=== PATIENT | female | born 1940 | race Caucasian/White ===

== ENCOUNTER 2017-02-28 10:00 | Outpatient (CLI) | payer MEDICARE, BC ==
[~2017-02-28 10:00] MED LIST: ASPI-605 PO; ATOR40TA GT; CARV25TA2 PO; OLME40TA3 PO
== END 2017-02-28 23:59 | disposition home or self-care (01) ==
LOC: WOU 10:00
PROVIDERS: ATTEND Podiatrist Foot & Ankle Surgery
DX: I87.313 Chronic venous hypertension (idiopathic) with ulcer of bilateral lower extremity (principal); L97.822 Non-pressure chronic ulcer of other part of left lower leg with fat layer exposed; L97.812 Non-pressure chronic ulcer of other part of right lower leg with fat layer exposed; Z87.828 Personal history of other (healed) physical injury and trauma; M79.2 Neuralgia and neuritis, unspecified; M79.662 Pain in left lower leg; M79.661 Pain in right lower leg; E78.5 Hyperlipidemia, unspecified; I10 Essential (primary) hypertension; Z79.899 Other long term (current) drug therapy; Z96.643 Presence of artificial hip joint, bilateral; Z86.73 Personal history of transient ischemic attack (TIA), and cerebral infarction without residual deficits; Z87.891 Personal history of nicotine dependence; Z85.3 Personal history of malignant neoplasm of breast
CPT/HCPCS: 11042; A6402; J3490

== ENCOUNTER 2017-03-07 10:00 | Outpatient (CLI) | payer MEDICARE, BC ==
[~2017-03-07 10:00] MED LIST changes: +OLME40TA12 PO; -OLME40TA3 PO
== END 2017-03-07 23:59 | disposition home or self-care (01) ==
LOC: WOU 10:00
PROVIDERS: ATTEND Podiatrist Foot & Ankle Surgery
DX: I87.313 Chronic venous hypertension (idiopathic) with ulcer of bilateral lower extremity (principal); L97.822 Non-pressure chronic ulcer of other part of left lower leg with fat layer exposed; L97.812 Non-pressure chronic ulcer of other part of right lower leg with fat layer exposed; Z96.643 Presence of artificial hip joint, bilateral; Z86.73 Personal history of transient ischemic attack (TIA), and cerebral infarction without residual deficits; Z85.3 Personal history of malignant neoplasm of breast; Z87.891 Personal history of nicotine dependence; Z87.828 Personal history of other (healed) physical injury and trauma
CPT/HCPCS: 11042; A6402

== ENCOUNTER 2017-03-20 12:00 | Outpatient (CLI) | payer MEDICARE, BC | END 2017-03-20 23:59 | disposition home or self-care (01) | LOC: WOU 12:00 | PROVIDERS: ATTEND Podiatrist Foot & Ankle Surgery | DX: I87.313 Chronic venous hypertension (idiopathic) with ulcer of bilateral lower extremity (principal); L97.822 Non-pressure chronic ulcer of other part of left lower leg with fat layer exposed; L97.812 Non-pressure chronic ulcer of other part of right lower leg with fat layer exposed; M79.2 Neuralgia and neuritis, unspecified; C50.919 Malignant neoplasm of unspecified site of unspecified female breast; Z87.828 Personal history of other (healed) physical injury and trauma; Z87.891 Personal history of nicotine dependence; E78.5 Hyperlipidemia, unspecified; I10 Essential (primary) hypertension; Z96.643 Presence of artificial hip joint, bilateral; Z79.899 Other long term (current) drug therapy | CPT/HCPCS: 11042; A6402 ==

== ENCOUNTER 2017-04-04 10:00 | Outpatient (CLI) | payer MEDICARE, BC | END 2017-04-04 23:59 | disposition home or self-care (01) | LOC: WOU 10:00 | PROVIDERS: ATTEND Podiatrist Foot & Ankle Surgery | DX: Z09 Encounter for follow-up examination after completed treatment for conditions other than malignant neoplasm (principal); M79.2 Neuralgia and neuritis, unspecified; C50.919 Malignant neoplasm of unspecified site of unspecified female breast; Z86.73 Personal history of transient ischemic attack (TIA), and cerebral infarction without residual deficits; Z79.82 Long term (current) use of aspirin; Z87.891 Personal history of nicotine dependence; I10 Essential (primary) hypertension | CPT/HCPCS: G0463 ==

== ENCOUNTER 2017-11-29 13:39 | Outpatient (CLI) | payer MEDICARE, BC | END 2017-11-29 23:59 | disposition home or self-care (01) | LOC: WOU 13:39 | PROVIDERS: ATTEND Podiatrist Foot & Ankle Surgery | DX: S81.812A Laceration without foreign body, left lower leg, initial encounter (principal); X58.XXXA Exposure to other specified factors, initial encounter; Y92.89 Other specified places as the place of occurrence of the external cause; M79.2 Neuralgia and neuritis, unspecified; Z96.643 Presence of artificial hip joint, bilateral; Z85.3 Personal history of malignant neoplasm of breast; I10 Essential (primary) hypertension; Z86.73 Personal history of transient ischemic attack (TIA), and cerebral infarction without residual deficits; Z87.891 Personal history of nicotine dependence; Z79.899 Other long term (current) drug therapy | CPT/HCPCS: 11042; A6402; Z7610 ==

== ENCOUNTER 2017-12-05 09:25 | Outpatient (CLI) | payer MEDICARE, BC | END 2017-12-05 23:59 | disposition home or self-care (01) | LOC: WOU 09:25 | PROVIDERS: ATTEND Podiatrist Foot & Ankle Surgery | DX: S81.812A Laceration without foreign body, left lower leg, initial encounter (principal); X58.XXXA Exposure to other specified factors, initial encounter; Y92.89 Other specified places as the place of occurrence of the external cause; M79.2 Neuralgia and neuritis, unspecified; Z85.3 Personal history of malignant neoplasm of breast; Z96.643 Presence of artificial hip joint, bilateral; Z87.891 Personal history of nicotine dependence; E78.5 Hyperlipidemia, unspecified; Z86.73 Personal history of transient ischemic attack (TIA), and cerebral infarction without residual deficits; Z79.899 Other long term (current) drug therapy | CPT/HCPCS: 11042; A6402; Z7610 ==

== ENCOUNTER 2017-12-12 14:00 | Outpatient (CLI) | payer MEDICARE, BC | END 2017-12-12 23:59 | disposition home or self-care (01) | LOC: WOU 14:00 | PROVIDERS: ATTEND Podiatrist Foot & Ankle Surgery | DX: S81.812A Laceration without foreign body, left lower leg, initial encounter (principal); X58.XXXA Exposure to other specified factors, initial encounter; Y92.89 Other specified places as the place of occurrence of the external cause; M79.2 Neuralgia and neuritis, unspecified; Z86.73 Personal history of transient ischemic attack (TIA), and cerebral infarction without residual deficits; Z87.891 Personal history of nicotine dependence; Z85.3 Personal history of malignant neoplasm of breast; Z82.49 Family history of ischemic heart disease and other diseases of the circulatory system | CPT/HCPCS: 11042; A6402; J3490; Z7610 ==

== ENCOUNTER 2017-12-19 13:50 | Outpatient (CLI) | payer MEDICARE, BC | END 2017-12-19 23:59 | disposition home or self-care (01) | LOC: WOU 13:50 | PROVIDERS: ATTEND Podiatrist Foot & Ankle Surgery | DX: S81.812A Laceration without foreign body, left lower leg, initial encounter (principal); X58.XXXA Exposure to other specified factors, initial encounter; Y92.89 Other specified places as the place of occurrence of the external cause; M79.2 Neuralgia and neuritis, unspecified; Z96.643 Presence of artificial hip joint, bilateral; Z86.73 Personal history of transient ischemic attack (TIA), and cerebral infarction without residual deficits; Z87.891 Personal history of nicotine dependence; Z85.3 Personal history of malignant neoplasm of breast; E78.5 Hyperlipidemia, unspecified; I10 Essential (primary) hypertension | CPT/HCPCS: 15271; A6402; Q4132; Z7610 ==

== ENCOUNTER 2017-12-26 10:05 | Outpatient (CLI) | payer MEDICARE, BC | END 2017-12-26 23:59 | disposition home or self-care (01) | LOC: WOU 10:05 | PROVIDERS: ATTEND Podiatrist Foot & Ankle Surgery | DX: S81.812A Laceration without foreign body, left lower leg, initial encounter (principal); X58.XXXA Exposure to other specified factors, initial encounter; Y92.89 Other specified places as the place of occurrence of the external cause; Y99.8 Other external cause status; M79.2 Neuralgia and neuritis, unspecified; Z87.891 Personal history of nicotine dependence; Z96.643 Presence of artificial hip joint, bilateral; Z85.3 Personal history of malignant neoplasm of breast; Z86.73 Personal history of transient ischemic attack (TIA), and cerebral infarction without residual deficits | CPT/HCPCS: 15271; A6402; Q4133 ==

== ENCOUNTER 2018-01-02 08:40 | Outpatient (CLI) | payer MEDICARE, BC | END 2018-01-02 23:59 | disposition home or self-care (01) | LOC: WOU 08:40 | PROVIDERS: ATTEND Podiatrist Foot & Ankle Surgery | DX: S81.812A Laceration without foreign body, left lower leg, initial encounter (principal); X58.XXXA Exposure to other specified factors, initial encounter; Y92.89 Other specified places as the place of occurrence of the external cause; M79.2 Neuralgia and neuritis, unspecified; Z86.73 Personal history of transient ischemic attack (TIA), and cerebral infarction without residual deficits; Z87.891 Personal history of nicotine dependence; Z85.3 Personal history of malignant neoplasm of breast; Z92.3 Personal history of irradiation; Z96.643 Presence of artificial hip joint, bilateral | CPT/HCPCS: 15271; A6402; Z7610 ==

== ENCOUNTER 2018-02-27 09:50 | Outpatient (CLI) | payer MEDICARE, BC | END 2018-02-27 23:59 | disposition home or self-care (01) | LOC: WOU 09:50 | PROVIDERS: ATTEND Podiatrist Foot & Ankle Surgery | DX: S81.812D Laceration without foreign body, left lower leg, subsequent encounter (principal); W45.8XXD Other foreign body or object entering through skin, subsequent encounter; M79.2 Neuralgia and neuritis, unspecified; Z87.891 Personal history of nicotine dependence; Z86.73 Personal history of transient ischemic attack (TIA), and cerebral infarction without residual deficits; Z85.3 Personal history of malignant neoplasm of breast; Z92.3 Personal history of irradiation; E78.5 Hyperlipidemia, unspecified; I10 Essential (primary) hypertension; Z79.82 Long term (current) use of aspirin; Z79.899 Other long term (current) drug therapy | CPT/HCPCS: A6402; G0463; Z7610 ==

== ENCOUNTER 2018-04-10 09:50 | Outpatient (CLI) | payer MEDICARE, BC | END 2018-04-10 23:59 | disposition home or self-care (01) | LOC: WOU 09:50 | PROVIDERS: ATTEND Podiatrist Foot & Ankle Surgery | DX: S81.811A Laceration without foreign body, right lower leg, initial encounter (principal); W22.8XXA Striking against or struck by other objects, initial encounter; Y92.89 Other specified places as the place of occurrence of the external cause; M79.2 Neuralgia and neuritis, unspecified; E78.5 Hyperlipidemia, unspecified; Z86.73 Personal history of transient ischemic attack (TIA), and cerebral infarction without residual deficits; Z85.3 Personal history of malignant neoplasm of breast; Z87.891 Personal history of nicotine dependence; I10 Essential (primary) hypertension; Z96.643 Presence of artificial hip joint, bilateral; Z79.82 Long term (current) use of aspirin; Z79.899 Other long term (current) drug therapy | CPT/HCPCS: 11042; A6402 ==

== ENCOUNTER 2018-04-17 10:15 | Outpatient (CLI) | payer MEDICARE, BC | END 2018-04-17 23:59 | disposition home or self-care (01) | LOC: WOU 10:15 | PROVIDERS: ATTEND Podiatrist Foot & Ankle Surgery | DX: S81.811A Laceration without foreign body, right lower leg, initial encounter (principal); W22.8XXA Striking against or struck by other objects, initial encounter; Y92.9 Unspecified place or not applicable; M79.2 Neuralgia and neuritis, unspecified; Z96.643 Presence of artificial hip joint, bilateral; Z86.73 Personal history of transient ischemic attack (TIA), and cerebral infarction without residual deficits; Z87.891 Personal history of nicotine dependence; Z85.3 Personal history of malignant neoplasm of breast; I10 Essential (primary) hypertension; E78.5 Hyperlipidemia, unspecified; Z79.82 Long term (current) use of aspirin; Z79.899 Other long term (current) drug therapy | CPT/HCPCS: 11042; A6402; Z7610 ==

== ENCOUNTER 2018-04-24 09:40 | Outpatient (CLI) | payer MEDICARE, BC | END 2018-04-24 23:59 | disposition home or self-care (01) | LOC: WOU 09:40 | PROVIDERS: ATTEND Podiatrist Foot & Ankle Surgery | DX: S81.811A Laceration without foreign body, right lower leg, initial encounter (principal); W22.8XXA Striking against or struck by other objects, initial encounter; Y92.89 Other specified places as the place of occurrence of the external cause; Z85.3 Personal history of malignant neoplasm of breast; Z90.10 Acquired absence of unspecified breast and nipple; Z87.891 Personal history of nicotine dependence; E78.5 Hyperlipidemia, unspecified; I10 Essential (primary) hypertension; M79.2 Neuralgia and neuritis, unspecified | CPT/HCPCS: 11042; A6402 ==

== ENCOUNTER 2018-05-08 10:15 | Outpatient (CLI) | payer MEDICARE, BC | END 2018-05-08 23:59 | disposition home or self-care (01) | LOC: WOU 10:15 | PROVIDERS: ATTEND Podiatrist Foot & Ankle Surgery | DX: S81.811A Laceration without foreign body, right lower leg, initial encounter (principal); W22.8XXA Striking against or struck by other objects, initial encounter; Y92.89 Other specified places as the place of occurrence of the external cause; Z87.891 Personal history of nicotine dependence; I10 Essential (primary) hypertension; E78.5 Hyperlipidemia, unspecified; Z86.73 Personal history of transient ischemic attack (TIA), and cerebral infarction without residual deficits; Z85.3 Personal history of malignant neoplasm of breast; Z96.643 Presence of artificial hip joint, bilateral; M79.2 Neuralgia and neuritis, unspecified | CPT/HCPCS: 11042; A6402 ==

== ENCOUNTER 2018-05-22 10:30 | Outpatient (CLI) | payer MEDICARE, BC | END 2018-05-22 23:59 | disposition home or self-care (01) | LOC: WOU 10:30 | PROVIDERS: ATTEND Podiatrist Foot & Ankle Surgery | DX: S81.811A Laceration without foreign body, right lower leg, initial encounter (principal); W22.8XXA Striking against or struck by other objects, initial encounter; Y92.89 Other specified places as the place of occurrence of the external cause; M79.2 Neuralgia and neuritis, unspecified; Z96.643 Presence of artificial hip joint, bilateral; E78.5 Hyperlipidemia, unspecified; Z86.73 Personal history of transient ischemic attack (TIA), and cerebral infarction without residual deficits; Z85.3 Personal history of malignant neoplasm of breast; Z87.891 Personal history of nicotine dependence; Z88.8 Allergy status to other drugs, medicaments and biological substances | CPT/HCPCS: 11042; A6402 ==

== ENCOUNTER 2018-06-05 10:30 | Outpatient (CLI) | payer MEDICARE, BC | END 2018-06-05 23:59 | disposition home or self-care (01) | LOC: WOU 10:30 | PROVIDERS: ATTEND Podiatrist Foot & Ankle Surgery | DX: S81.811D Laceration without foreign body, right lower leg, subsequent encounter (principal); W22.8XXD Striking against or struck by other objects, subsequent encounter; M79.2 Neuralgia and neuritis, unspecified; D69.2 Other nonthrombocytopenic purpura; Z85.3 Personal history of malignant neoplasm of breast; Z92.3 Personal history of irradiation; E78.5 Hyperlipidemia, unspecified; Z96.643 Presence of artificial hip joint, bilateral; Z79.82 Long term (current) use of aspirin; Z79.899 Other long term (current) drug therapy | CPT/HCPCS: G0463 ==

== ENCOUNTER 2018-10-02 09:45 | Outpatient (CLI) | payer MEDICARE, BC | END 2018-10-02 23:59 | disposition home or self-care (01) | LOC: WOU 09:45 | PROVIDERS: ATTEND Podiatrist Foot & Ankle Surgery | DX: S81.812A Laceration without foreign body, left lower leg, initial encounter (principal); W45.8XXA Other foreign body or object entering through skin, initial encounter; Y93.K1 Activity, walking an animal; Y92.89 Other specified places as the place of occurrence of the external cause; D69.2 Other nonthrombocytopenic purpura; M79.2 Neuralgia and neuritis, unspecified; Z87.891 Personal history of nicotine dependence; Z85.3 Personal history of malignant neoplasm of breast; Z92.3 Personal history of irradiation; Z96.643 Presence of artificial hip joint, bilateral; Z79.82 Long term (current) use of aspirin; Z79.899 Other long term (current) drug therapy | CPT/HCPCS: A6402; G0463 ==

== ENCOUNTER 2018-10-09 09:40 | Outpatient (CLI) | payer MEDICARE, BC | END 2018-10-09 23:59 | disposition home or self-care (01) | LOC: WOU 09:40 | PROVIDERS: ATTEND Podiatrist Foot & Ankle Surgery | DX: S81.812A Laceration without foreign body, left lower leg, initial encounter (principal); X58.XXXA Exposure to other specified factors, initial encounter; Y92.89 Other specified places as the place of occurrence of the external cause; M79.2 Neuralgia and neuritis, unspecified; D69.2 Other nonthrombocytopenic purpura; Z96.643 Presence of artificial hip joint, bilateral; Z85.3 Personal history of malignant neoplasm of breast; Z86.73 Personal history of transient ischemic attack (TIA), and cerebral infarction without residual deficits; Z87.891 Personal history of nicotine dependence; I10 Essential (primary) hypertension; E78.5 Hyperlipidemia, unspecified; Z92.3 Personal history of irradiation; Z79.82 Long term (current) use of aspirin; Z79.899 Other long term (current) drug therapy | CPT/HCPCS: 11042 ==

== ENCOUNTER 2018-10-16 10:00 | Outpatient (CLI) | payer MEDICARE, BC | END 2018-10-16 23:59 | disposition home or self-care (01) | LOC: WOU 10:00 | PROVIDERS: ATTEND Podiatrist Foot & Ankle Surgery | DX: S71.112A Laceration without foreign body, left thigh, initial encounter (principal); W45.8XXA Other foreign body or object entering through skin, initial encounter; Y93.K1 Activity, walking an animal; Y92.89 Other specified places as the place of occurrence of the external cause; M79.2 Neuralgia and neuritis, unspecified; D69.2 Other nonthrombocytopenic purpura; Z96.643 Presence of artificial hip joint, bilateral; E78.5 Hyperlipidemia, unspecified; Z86.73 Personal history of transient ischemic attack (TIA), and cerebral infarction without residual deficits; Z85.3 Personal history of malignant neoplasm of breast; Z87.891 Personal history of nicotine dependence; Z79.899 Other long term (current) drug therapy; Z79.82 Long term (current) use of aspirin | CPT/HCPCS: 11042 ==

== ENCOUNTER 2018-10-30 09:50 | Outpatient (CLI) | payer MEDICARE, BC | END 2018-10-30 23:59 | disposition home or self-care (01) | LOC: WOU 09:50 | PROVIDERS: ATTEND Podiatrist Foot & Ankle Surgery | DX: S81.812D Laceration without foreign body, left lower leg, subsequent encounter (principal); W45.8XXD Other foreign body or object entering through skin, subsequent encounter; M79.2 Neuralgia and neuritis, unspecified; D69.2 Other nonthrombocytopenic purpura; Z87.891 Personal history of nicotine dependence; Z96.643 Presence of artificial hip joint, bilateral; Z86.73 Personal history of transient ischemic attack (TIA), and cerebral infarction without residual deficits; Z85.3 Personal history of malignant neoplasm of breast; Z79.82 Long term (current) use of aspirin; Z79.899 Other long term (current) drug therapy | CPT/HCPCS: G0463 ==

== ENCOUNTER 2019-01-01 12:30 | Outpatient (CLI) | payer MEDICARE, BC | END 2019-01-01 23:59 | disposition home or self-care (01) | LOC: WOU 12:30 | PROVIDERS: ATTEND Surgery | DX: S51.812A Laceration without foreign body of left forearm, initial encounter (principal); W45.8XXA Other foreign body or object entering through skin, initial encounter; Y92.89 Other specified places as the place of occurrence of the external cause; Z87.891 Personal history of nicotine dependence; D69.2 Other nonthrombocytopenic purpura; M79.2 Neuralgia and neuritis, unspecified; Z96.643 Presence of artificial hip joint, bilateral; Z86.73 Personal history of transient ischemic attack (TIA), and cerebral infarction without residual deficits; Z85.3 Personal history of malignant neoplasm of breast; E78.5 Hyperlipidemia, unspecified; I10 Essential (primary) hypertension; Z92.3 Personal history of irradiation | CPT/HCPCS: G0463 ==

== ENCOUNTER 2019-01-08 12:30 | Outpatient (CLI) | payer MEDICARE, BC | END 2019-01-08 23:59 | disposition home or self-care (01) | LOC: WOU 12:30 | PROVIDERS: ATTEND Surgery | DX: S51.812D Laceration without foreign body of left forearm, subsequent encounter (principal); W45.8XXD Other foreign body or object entering through skin, subsequent encounter; W22.8XXD Striking against or struck by other objects, subsequent encounter; D69.2 Other nonthrombocytopenic purpura; M79.2 Neuralgia and neuritis, unspecified; Z86.73 Personal history of transient ischemic attack (TIA), and cerebral infarction without residual deficits; Z85.3 Personal history of malignant neoplasm of breast; Z92.3 Personal history of irradiation; I10 Essential (primary) hypertension; E78.5 Hyperlipidemia, unspecified; Z87.891 Personal history of nicotine dependence; Z96.643 Presence of artificial hip joint, bilateral | CPT/HCPCS: G0463 ==

== ENCOUNTER 2019-01-15 12:30 | Outpatient (CLI) | payer MEDICARE, BC | END 2019-01-15 23:59 | disposition home or self-care (01) | LOC: WOU 12:30 | PROVIDERS: ATTEND Surgery | DX: S51.812D Laceration without foreign body of left forearm, subsequent encounter (principal); W45.8XXD Other foreign body or object entering through skin, subsequent encounter; Z86.73 Personal history of transient ischemic attack (TIA), and cerebral infarction without residual deficits; Z87.891 Personal history of nicotine dependence; Z85.3 Personal history of malignant neoplasm of breast; Z92.3 Personal history of irradiation; M79.2 Neuralgia and neuritis, unspecified; D69.2 Other nonthrombocytopenic purpura | CPT/HCPCS: G0463 ==

== ENCOUNTER 2019-01-22 12:20 | Outpatient (CLI) | payer MEDICARE, BC | END 2019-01-22 23:59 | disposition home or self-care (01) | LOC: WOU 12:20 | PROVIDERS: ATTEND Surgery | DX: S51.812D Laceration without foreign body of left forearm, subsequent encounter (principal); W45.8XXD Other foreign body or object entering through skin, subsequent encounter; Z86.73 Personal history of transient ischemic attack (TIA), and cerebral infarction without residual deficits; Z85.3 Personal history of malignant neoplasm of breast; I10 Essential (primary) hypertension; E78.5 Hyperlipidemia, unspecified; Z92.3 Personal history of irradiation; D69.2 Other nonthrombocytopenic purpura; M79.2 Neuralgia and neuritis, unspecified | CPT/HCPCS: G0463 ==

== ENCOUNTER 2019-01-29 11:35 | Outpatient (CLI) | payer MEDICARE, BC | END 2019-01-29 23:59 | disposition home or self-care (01) | LOC: WOU 11:35 | PROVIDERS: ATTEND Surgery | DX: T81.30XA Disruption of wound, unspecified, initial encounter (principal); M79.2 Neuralgia and neuritis, unspecified; D69.2 Other nonthrombocytopenic purpura; Z86.73 Personal history of transient ischemic attack (TIA), and cerebral infarction without residual deficits; Z85.3 Personal history of malignant neoplasm of breast; E78.5 Hyperlipidemia, unspecified; I10 Essential (primary) hypertension; Z87.891 Personal history of nicotine dependence; Z96.643 Presence of artificial hip joint, bilateral; Z92.3 Personal history of irradiation; Z79.82 Long term (current) use of aspirin | CPT/HCPCS: G0463 ==

== ENCOUNTER 2019-02-26 12:15 | Outpatient (CLI) | payer MEDICARE, BC | END 2019-02-26 23:59 | disposition home or self-care (01) | LOC: WOU 12:15 | PROVIDERS: ATTEND Surgery | DX: S51.812D Laceration without foreign body of left forearm, subsequent encounter (principal); W45.8XXD Other foreign body or object entering through skin, subsequent encounter; M79.2 Neuralgia and neuritis, unspecified; I10 Essential (primary) hypertension; Z87.891 Personal history of nicotine dependence; D69.2 Other nonthrombocytopenic purpura; E78.5 Hyperlipidemia, unspecified; Z96.643 Presence of artificial hip joint, bilateral | CPT/HCPCS: G0463 ==

== ENCOUNTER 2019-03-12 12:25 | Outpatient (CLI) | payer MEDICARE, BC | END 2019-03-12 23:59 | disposition home or self-care (01) | LOC: WOU 12:25 | PROVIDERS: ATTEND Surgery | DX: S51.812D Laceration without foreign body of left forearm, subsequent encounter (principal); W45.8XXD Other foreign body or object entering through skin, subsequent encounter; Z87.891 Personal history of nicotine dependence; Z86.73 Personal history of transient ischemic attack (TIA), and cerebral infarction without residual deficits; Z85.3 Personal history of malignant neoplasm of breast; Z92.3 Personal history of irradiation; D69.2 Other nonthrombocytopenic purpura; M79.2 Neuralgia and neuritis, unspecified; E78.5 Hyperlipidemia, unspecified; I10 Essential (primary) hypertension; Z96.643 Presence of artificial hip joint, bilateral; Z79.82 Long term (current) use of aspirin; Z79.899 Other long term (current) drug therapy | CPT/HCPCS: G0463 ==

== ENCOUNTER 2019-03-26 12:20 | Outpatient (CLI) | payer MEDICARE, BC | END 2019-03-26 23:59 | disposition home or self-care (01) | LOC: WOU 12:20 | PROVIDERS: ATTEND Surgery | DX: S81.811A Laceration without foreign body, right lower leg, initial encounter (principal); W45.8XXA Other foreign body or object entering through skin, initial encounter; Y93.89 Activity, other specified; Y92.89 Other specified places as the place of occurrence of the external cause; S51.812D Laceration without foreign body of left forearm, subsequent encounter; X58.XXXD Exposure to other specified factors, subsequent encounter; M79.2 Neuralgia and neuritis, unspecified; D69.2 Other nonthrombocytopenic purpura; Z96.643 Presence of artificial hip joint, bilateral; Z86.73 Personal history of transient ischemic attack (TIA), and cerebral infarction without residual deficits; Z85.3 Personal history of malignant neoplasm of breast; Z92.3 Personal history of irradiation; Z87.891 Personal history of nicotine dependence; E78.5 Hyperlipidemia, unspecified; Z79.899 Other long term (current) drug therapy; Z79.82 Long term (current) use of aspirin | CPT/HCPCS: G0463 ==

== ENCOUNTER 2019-04-02 12:30 | Outpatient (CLI) | payer MEDICARE, BC | END 2019-04-02 23:59 | disposition home or self-care (01) | LOC: WOU 12:30 | PROVIDERS: ATTEND Surgery | DX: E85.82 Wild-type transthyretin-related (ATTR) amyloidosis (principal); S81.811D Laceration without foreign body, right lower leg, subsequent encounter; S51.812D Laceration without foreign body of left forearm, subsequent encounter; X58.XXXD Exposure to other specified factors, subsequent encounter; M79.2 Neuralgia and neuritis, unspecified; D69.2 Other nonthrombocytopenic purpura; Z96.643 Presence of artificial hip joint, bilateral; Z85.3 Personal history of malignant neoplasm of breast; Z92.3 Personal history of irradiation; Z86.73 Personal history of transient ischemic attack (TIA), and cerebral infarction without residual deficits; Z87.891 Personal history of nicotine dependence; Z79.82 Long term (current) use of aspirin; Z79.899 Other long term (current) drug therapy | CPT/HCPCS: G0463 ==

== ENCOUNTER 2019-04-09 12:15 | Outpatient (CLI) | payer MEDICARE, BC | END 2019-04-09 23:59 | disposition home or self-care (01) | LOC: WOU 12:15 | PROVIDERS: ATTEND Surgery | DX: S81.811D Laceration without foreign body, right lower leg, subsequent encounter (principal); S51.812D Laceration without foreign body of left forearm, subsequent encounter; W45.8XXD Other foreign body or object entering through skin, subsequent encounter; Z87.891 Personal history of nicotine dependence; I10 Essential (primary) hypertension; E78.5 Hyperlipidemia, unspecified; Z96.643 Presence of artificial hip joint, bilateral; Z86.73 Personal history of transient ischemic attack (TIA), and cerebral infarction without residual deficits; Z85.3 Personal history of malignant neoplasm of breast; Z92.3 Personal history of irradiation | CPT/HCPCS: G0463 ==

== ENCOUNTER 2019-04-23 12:20 | Outpatient (CLI) | payer MEDICARE, BC | END 2019-04-23 23:59 | disposition home or self-care (01) | LOC: WOU 12:20 | PROVIDERS: ATTEND Surgery | DX: S81.811D Laceration without foreign body, right lower leg, subsequent encounter (principal); W45.8XXD Other foreign body or object entering through skin, subsequent encounter; Z86.73 Personal history of transient ischemic attack (TIA), and cerebral infarction without residual deficits; Z85.3 Personal history of malignant neoplasm of breast; Z92.3 Personal history of irradiation; E78.5 Hyperlipidemia, unspecified; I10 Essential (primary) hypertension; M79.2 Neuralgia and neuritis, unspecified; D69.2 Other nonthrombocytopenic purpura; Z79.82 Long term (current) use of aspirin; Z79.899 Other long term (current) drug therapy | CPT/HCPCS: G0463 ==

== ENCOUNTER 2019-04-30 12:15 | Outpatient (CLI) | payer MEDICARE, BC | END 2019-04-30 23:59 | disposition home or self-care (01) | LOC: WOU 12:15 | PROVIDERS: ATTEND Surgery | DX: S51.012A Laceration without foreign body of left elbow, initial encounter (principal); W19.XXXA Unspecified fall, initial encounter; Z91.81 History of falling; Y92.89 Other specified places as the place of occurrence of the external cause; S81.811D Laceration without foreign body, right lower leg, subsequent encounter; W45.8XXD Other foreign body or object entering through skin, subsequent encounter; Z86.73 Personal history of transient ischemic attack (TIA), and cerebral infarction without residual deficits; Z87.891 Personal history of nicotine dependence; Z85.3 Personal history of malignant neoplasm of breast; Z92.3 Personal history of irradiation; E78.5 Hyperlipidemia, unspecified; I10 Essential (primary) hypertension | CPT/HCPCS: G0463 ==

== ENCOUNTER 2019-05-07 12:05 | Outpatient (CLI) | payer MEDICARE, BC | END 2019-05-07 23:59 | disposition home or self-care (01) | LOC: WOU 12:05 | PROVIDERS: ATTEND Surgery | DX: S51.012D Laceration without foreign body of left elbow, subsequent encounter (principal); S81.811D Laceration without foreign body, right lower leg, subsequent encounter; W19.XXXD Unspecified fall, subsequent encounter; Z85.3 Personal history of malignant neoplasm of breast; Z86.73 Personal history of transient ischemic attack (TIA), and cerebral infarction without residual deficits; Z92.3 Personal history of irradiation; M79.2 Neuralgia and neuritis, unspecified; D69.2 Other nonthrombocytopenic purpura; Z96.643 Presence of artificial hip joint, bilateral; Z87.891 Personal history of nicotine dependence; I10 Essential (primary) hypertension | CPT/HCPCS: G0463 ==

== ENCOUNTER 2019-05-21 12:10 | Outpatient (CLI) | payer MEDICARE, BC | END 2019-05-21 23:59 | disposition home or self-care (01) | LOC: WOU 12:10 | PROVIDERS: ATTEND Surgery | DX: S81.811D Laceration without foreign body, right lower leg, subsequent encounter (principal); S51.012D Laceration without foreign body of left elbow, subsequent encounter; X58.XXXD Exposure to other specified factors, subsequent encounter; D69.2 Other nonthrombocytopenic purpura; M79.2 Neuralgia and neuritis, unspecified; I10 Essential (primary) hypertension; E78.5 Hyperlipidemia, unspecified; Z85.3 Personal history of malignant neoplasm of breast; Z86.73 Personal history of transient ischemic attack (TIA), and cerebral infarction without residual deficits; Z92.3 Personal history of irradiation; Z87.891 Personal history of nicotine dependence; Z79.82 Long term (current) use of aspirin; Z79.899 Other long term (current) drug therapy | CPT/HCPCS: G0463 ==

== ENCOUNTER 2019-11-12 13:15 | Outpatient (CLI) | payer MEDICARE, BC | END 2019-11-12 23:59 | disposition home or self-care (01) | LOC: WOU 13:15 | PROVIDERS: ATTEND Surgery | DX: S51.812D Laceration without foreign body of left forearm, subsequent encounter (principal); X58.XXXD Exposure to other specified factors, subsequent encounter; M79.2 Neuralgia and neuritis, unspecified; D69.2 Other nonthrombocytopenic purpura; Z79.82 Long term (current) use of aspirin; I10 Essential (primary) hypertension | CPT/HCPCS: G0463 ==

== ENCOUNTER 2019-11-26 12:35 | Outpatient (CLI) | payer MEDICARE, BC | END 2019-11-26 23:59 | disposition home or self-care (01) | LOC: WOU 12:35 | PROVIDERS: ATTEND Surgery | DX: S51.812D Laceration without foreign body of left forearm, subsequent encounter (principal); W19.XXXD Unspecified fall, subsequent encounter; M79.2 Neuralgia and neuritis, unspecified; D69.2 Other nonthrombocytopenic purpura; I10 Essential (primary) hypertension; E78.5 Hyperlipidemia, unspecified; Z87.891 Personal history of nicotine dependence | CPT/HCPCS: G0463 ==

== ENCOUNTER 2020-04-14 12:40 | Outpatient (CLI) | payer MEDICARE, BC | END 2020-04-14 23:59 | disposition home or self-care (01) | LOC: WOU 12:40 | PROVIDERS: ATTEND Podiatrist Foot & Ankle Surgery | DX: L60.0 Ingrowing nail (principal); L03.031 Cellulitis of right toe; R26.2 Difficulty in walking, not elsewhere classified; M79.671 Pain in right foot; Z79.82 Long term (current) use of aspirin | CPT/HCPCS: G0463 ==

== ENCOUNTER 2021-01-10 08:20 | Outpatient (CLI) | payer MEDICARE, BC | END 2021-01-10 23:59 | disposition home or self-care (01) | LOC: WOU 08:20 | PROVIDERS: ATTEND Surgery | DX: S81.012A Laceration without foreign body, left knee, initial encounter (principal); W19.XXXA Unspecified fall, initial encounter; Y92.89 Other specified places as the place of occurrence of the external cause | CPT/HCPCS: G0463 ==

== ENCOUNTER 2021-01-31 08:15 | Outpatient (CLI) | payer MEDICARE, BC | END 2021-01-31 23:59 | disposition home or self-care (01) | LOC: WOU 08:15 | PROVIDERS: ATTEND Surgery | DX: S81.012A Laceration without foreign body, left knee, initial encounter (principal); W19.XXXA Unspecified fall, initial encounter; Y92.89 Other specified places as the place of occurrence of the external cause | CPT/HCPCS: 11042; 11045 ==

== ENCOUNTER 2021-02-07 08:10 | Outpatient (CLI) | payer MEDICARE, BC | END 2021-02-07 23:59 | disposition home or self-care (01) | LOC: WOU 08:10 | PROVIDERS: ATTEND Surgery | DX: S81.012A Laceration without foreign body, left knee, initial encounter (principal); W19.XXXA Unspecified fall, initial encounter; Y92.89 Other specified places as the place of occurrence of the external cause; I10 Essential (primary) hypertension; E78.5 Hyperlipidemia, unspecified; Z87.891 Personal history of nicotine dependence | CPT/HCPCS: 11042 ==

== ENCOUNTER 2021-02-21 08:15 | Outpatient (CLI) | payer MEDICARE, BC | END 2021-02-21 23:59 | disposition home or self-care (01) | LOC: WOU 08:15 | PROVIDERS: ATTEND Surgery | DX: S81.012A Laceration without foreign body, left knee, initial encounter (principal); W19.XXXA Unspecified fall, initial encounter; Y92.89 Other specified places as the place of occurrence of the external cause; E78.5 Hyperlipidemia, unspecified; I10 Essential (primary) hypertension; Z87.891 Personal history of nicotine dependence | CPT/HCPCS: 11042 ==

== ENCOUNTER 2021-03-07 08:15 | Outpatient (CLI) | payer MEDICARE, BC | END 2021-03-07 23:59 | disposition home or self-care (01) | LOC: WOU 08:15 | PROVIDERS: ATTEND Surgery | DX: S81.012A Laceration without foreign body, left knee, initial encounter (principal); W19.XXXA Unspecified fall, initial encounter; Y92.89 Other specified places as the place of occurrence of the external cause | CPT/HCPCS: 11042 ==

== ENCOUNTER 2021-03-21 08:05 | Outpatient (CLI) | payer MEDICARE, BC | END 2021-03-21 23:59 | disposition home or self-care (01) | LOC: WOU 08:05 | PROVIDERS: ATTEND Surgery | DX: S81.012A Laceration without foreign body, left knee, initial encounter (principal); W19.XXXA Unspecified fall, initial encounter; Y92.89 Other specified places as the place of occurrence of the external cause; I10 Essential (primary) hypertension | CPT/HCPCS: 11042 ==

== ENCOUNTER 2021-04-04 08:00 | Outpatient (CLI) | payer MEDICARE, BC | END 2021-04-04 23:59 | disposition home or self-care (01) | LOC: WOU 08:00 | PROVIDERS: ATTEND Surgery | DX: S81.012A Laceration without foreign body, left knee, initial encounter (principal); W19.XXXA Unspecified fall, initial encounter; Y92.89 Other specified places as the place of occurrence of the external cause | CPT/HCPCS: 11042 ==

== ENCOUNTER 2021-04-18 08:20 | Outpatient (CLI) | payer MEDICARE, BC ==
[2021-04-18] MEDS ORDERED: LIDOCAINE SOLN 4% 50 ML BOTTLE ONE (08:42)
== END 2021-04-18 23:59 | disposition home or self-care (01) ==
LOC: WOU 08:20
PROVIDERS: ATTEND Surgery
DX: S81.012A Laceration without foreign body, left knee, initial encounter (principal); W19.XXXA Unspecified fall, initial encounter; Y92.89 Other specified places as the place of occurrence of the external cause; I10 Essential (primary) hypertension; Z87.891 Personal history of nicotine dependence
CPT/HCPCS: 11042

== ENCOUNTER 2021-05-02 08:15 | Outpatient (CLI) | payer MEDICARE, BC | END 2021-05-02 23:59 | disposition home or self-care (01) | LOC: WOU 08:15 | PROVIDERS: ATTEND Surgery | DX: S81.012D Laceration without foreign body, left knee, subsequent encounter (principal); W19.XXXD Unspecified fall, subsequent encounter | CPT/HCPCS: G0463 ==

== ENCOUNTER 2021-06-13 08:15 | Outpatient (CLI) | payer MEDICARE, BC | END 2021-06-13 23:59 | disposition home or self-care (01) | LOC: WOU 08:15 | PROVIDERS: ATTEND Surgery | DX: S81.012D Laceration without foreign body, left knee, subsequent encounter (principal); W19.XXXD Unspecified fall, subsequent encounter | CPT/HCPCS: G0463 ==

== ENCOUNTER 2021-08-31 13:49 | Outpatient (CLI) | payer MEDICARE, BC ==
[2021-08-31] MEDS ORDERED: LIDOCAINE SOLN 4% 50 ML BOTTLE ONE (13:54)
== END 2021-08-31 23:59 | disposition home or self-care (01) ==
LOC: WOU 13:49
PROVIDERS: ATTEND Surgery
DX: S81.812A Laceration without foreign body, left lower leg, initial encounter (principal); W45.8XXA Other foreign body or object entering through skin, initial encounter; Y92.89 Other specified places as the place of occurrence of the external cause; L03.116 Cellulitis of left lower limb; I10 Essential (primary) hypertension; E78.5 Hyperlipidemia, unspecified; Z85.3 Personal history of malignant neoplasm of breast; Z87.891 Personal history of nicotine dependence
CPT/HCPCS: 11042

== ENCOUNTER 2021-09-04 13:00 | Outpatient (CLI) | payer MEDICARE, BC | END 2021-09-04 23:59 | disposition home or self-care (01) | LOC: WOU 13:00 | PROVIDERS: ATTEND Surgery | DX: S81.812A Laceration without foreign body, left lower leg, initial encounter (principal); X58.XXXA Exposure to other specified factors, initial encounter; Y92.89 Other specified places as the place of occurrence of the external cause; I10 Essential (primary) hypertension; E78.5 Hyperlipidemia, unspecified; Z85.3 Personal history of malignant neoplasm of breast; Z86.73 Personal history of transient ischemic attack (TIA), and cerebral infarction without residual deficits | CPT/HCPCS: 11042 ==

== ENCOUNTER 2021-09-11 13:27 | Outpatient (CLI) | payer MEDICARE, BC | END 2021-09-11 23:59 | disposition home or self-care (01) | LOC: WOU 13:27 | PROVIDERS: ATTEND Surgery | DX: S81.812D Laceration without foreign body, left lower leg, subsequent encounter (principal); X58.XXXD Exposure to other specified factors, subsequent encounter; I10 Essential (primary) hypertension; E78.5 Hyperlipidemia, unspecified; F41.1 Generalized anxiety disorder; Z85.3 Personal history of malignant neoplasm of breast | CPT/HCPCS: G0463 ==

== ENCOUNTER 2021-09-21 12:30 | Outpatient (CLI) | payer MEDICARE, BC | END 2021-09-21 23:59 | disposition home or self-care (01) | LOC: WOU 12:30 | PROVIDERS: ATTEND Surgery | DX: S81.812D Laceration without foreign body, left lower leg, subsequent encounter (principal); X58.XXXD Exposure to other specified factors, subsequent encounter; I10 Essential (primary) hypertension; E78.5 Hyperlipidemia, unspecified; Z85.3 Personal history of malignant neoplasm of breast; Z87.891 Personal history of nicotine dependence | CPT/HCPCS: G0463 ==

== ENCOUNTER 2021-10-05 12:30 | Outpatient (CLI) | payer MEDICARE, BC | END 2021-10-05 23:59 | disposition home or self-care (01) | LOC: WOU 12:30 | PROVIDERS: ATTEND Surgery | DX: S81.812A Laceration without foreign body, left lower leg, initial encounter (principal); W19.XXXA Unspecified fall, initial encounter; Y92.89 Other specified places as the place of occurrence of the external cause; E78.5 Hyperlipidemia, unspecified; I10 Essential (primary) hypertension; F41.1 Generalized anxiety disorder | CPT/HCPCS: 17250; A6209 ==

== ENCOUNTER 2021-10-26 12:50 | Outpatient (CLI) | payer MEDICARE, BC | END 2021-10-26 23:59 | disposition home or self-care (01) | LOC: WOU 12:50 | PROVIDERS: ATTEND Surgery | DX: S81.812D Laceration without foreign body, left lower leg, subsequent encounter (principal); W19.XXXD Unspecified fall, subsequent encounter; E78.5 Hyperlipidemia, unspecified; I10 Essential (primary) hypertension; F41.1 Generalized anxiety disorder; Z87.891 Personal history of nicotine dependence; Z85.3 Personal history of malignant neoplasm of breast | CPT/HCPCS: G0463 ==

== ENCOUNTER 2022-01-01 13:00 | Outpatient (CLI) | payer MEDICARE, BC ==
[2022-01-01] MEDS ORDERED: LIDOCAINE SOLN 4% 50 ML BOTTLE ONE (13:01)
== END 2022-01-01 23:59 | disposition home or self-care (01) ==
LOC: WOU 13:00
PROVIDERS: ATTEND Surgery
DX: S81.811A Laceration without foreign body, right lower leg, initial encounter (principal); X58.XXXA Exposure to other specified factors, initial encounter; Y92.89 Other specified places as the place of occurrence of the external cause; L03.115 Cellulitis of right lower limb; I10 Essential (primary) hypertension; E78.5 Hyperlipidemia, unspecified; F41.1 Generalized anxiety disorder; Z85.3 Personal history of malignant neoplasm of breast; Z86.73 Personal history of transient ischemic attack (TIA), and cerebral infarction without residual deficits
CPT/HCPCS: 11042; 87070-TC; 87075-TC; 87186-TC

== ENCOUNTER 2022-01-04 12:00 | Outpatient (CLI) | payer MEDICARE, BC ==
[2022-01-04] MEDS ORDERED: LIDOCAINE SOLN 4% 50 ML BOTTLE ONE (12:01)
== END 2022-01-04 23:59 | disposition home or self-care (01) ==
LOC: WOU 12:00
PROVIDERS: ATTEND Surgery
DX: S81.811A Laceration without foreign body, right lower leg, initial encounter (principal); X58.XXXA Exposure to other specified factors, initial encounter; Y92.89 Other specified places as the place of occurrence of the external cause; L03.115 Cellulitis of right lower limb; I10 Essential (primary) hypertension; E78.5 Hyperlipidemia, unspecified; F41.1 Generalized anxiety disorder; Z85.3 Personal history of malignant neoplasm of breast; Z86.73 Personal history of transient ischemic attack (TIA), and cerebral infarction without residual deficits
CPT/HCPCS: 11042

== ENCOUNTER 2022-01-08 12:52 | Outpatient (CLI) | payer MEDICARE, BC ==
[2022-01-08] MEDS ORDERED: GENTAMICIN 0.1% CREAM 15 GM TUBE ONE (12:54)
== END 2022-01-08 23:59 | disposition home or self-care (01) ==
LOC: WOU 12:52
PROVIDERS: ATTEND Surgery
DX: S81.811A Laceration without foreign body, right lower leg, initial encounter (principal); X58.XXXA Exposure to other specified factors, initial encounter; Y92.89 Other specified places as the place of occurrence of the external cause; L03.115 Cellulitis of right lower limb; E78.5 Hyperlipidemia, unspecified; I10 Essential (primary) hypertension; Z85.3 Personal history of malignant neoplasm of breast; F41.1 Generalized anxiety disorder; Z86.73 Personal history of transient ischemic attack (TIA), and cerebral infarction without residual deficits
CPT/HCPCS: 11042

== ENCOUNTER → 2022-01-11 | Outpatient (CLI) | payer MEDICARE, BC ==
[~2022-01-11] MED LIST changes: +GENTAMICIN 0.1% CREAM 15 GM TUBE ONE
== END | disposition home or self-care (01) ==
LOC: WOU 12:44
PROVIDERS: ATTEND Surgery
DX: S81.811A Laceration without foreign body, right lower leg, initial encounter (principal); X58.XXXA Exposure to other specified factors, initial encounter; Y92.89 Other specified places as the place of occurrence of the external cause; L03.115 Cellulitis of right lower limb; E78.5 Hyperlipidemia, unspecified; I10 Essential (primary) hypertension; F41.1 Generalized anxiety disorder; Z85.3 Personal history of malignant neoplasm of breast; Z86.73 Personal history of transient ischemic attack (TIA), and cerebral infarction without residual deficits
CPT/HCPCS: 11042

== ENCOUNTER 2022-01-15 12:48 | Outpatient (CLI) | payer MEDICARE, BC ==
[~2022-01-15 12:48] MED LIST changes: -GENTAMICIN 0.1% CREAM 15 GM TUBE ONE
[2022-01-15] MEDS ORDERED: LIDOCAINE SOLN 4% 50 ML BOTTLE ONE (13:00)
== END 2022-01-15 23:59 | disposition home health service (06) ==
LOC: WOU 12:48
PROVIDERS: ATTEND Surgery
DX: S81.811A Laceration without foreign body, right lower leg, initial encounter (principal); X58.XXXA Exposure to other specified factors, initial encounter; Y92.89 Other specified places as the place of occurrence of the external cause; E78.5 Hyperlipidemia, unspecified; I10 Essential (primary) hypertension; Z85.3 Personal history of malignant neoplasm of breast; F41.1 Generalized anxiety disorder; Z86.73 Personal history of transient ischemic attack (TIA), and cerebral infarction without residual deficits
CPT/HCPCS: 11042

== ENCOUNTER 2022-01-18 12:30 | Outpatient (CLI) | payer MEDICARE, BC ==
[2022-01-18] MEDS ORDERED: LIDOCAINE SOLN 4% 50 ML BOTTLE ONE (12:31)
[2022-01-18] MEDS ORDERED: COLLAGENASE 5 GM TUBE UD TP ONE (13:22)
== END 2022-01-18 23:59 | disposition home health service (06) ==
LOC: WOU 12:30
PROVIDERS: ATTEND Surgery
DX: S81.811A Laceration without foreign body, right lower leg, initial encounter (principal); X58.XXXA Exposure to other specified factors, initial encounter; Y92.89 Other specified places as the place of occurrence of the external cause; E78.5 Hyperlipidemia, unspecified; F41.1 Generalized anxiety disorder; I10 Essential (primary) hypertension; Z85.3 Personal history of malignant neoplasm of breast; Z86.73 Personal history of transient ischemic attack (TIA), and cerebral infarction without residual deficits
CPT/HCPCS: 11042

== ENCOUNTER 2022-01-22 13:01 | Outpatient (CLI) | payer MEDICARE, BC ==
[~2022-01-22 13:01] MED LIST changes: +LIDOCAINE SOLN 4% 50 ML BOTTLE ONE
[2022-01-22] MEDS ORDERED: SILVER NITRATE APPLICATOR 1 EA BOX ONE (13:14)
[2022-01-22] MEDS ORDERED: COLLAGENASE 5 GM TUBE UD TP ONE (13:20)
== END 2022-01-22 23:59 | disposition home health service (06) ==
LOC: WOU 13:01
PROVIDERS: ATTEND Surgery
DX: S81.811A Laceration without foreign body, right lower leg, initial encounter (principal); X58.XXXA Exposure to other specified factors, initial encounter; Y92.89 Other specified places as the place of occurrence of the external cause; E78.5 Hyperlipidemia, unspecified; I10 Essential (primary) hypertension; F41.1 Generalized anxiety disorder; Z86.73 Personal history of transient ischemic attack (TIA), and cerebral infarction without residual deficits; Z85.3 Personal history of malignant neoplasm of breast
CPT/HCPCS: 11042

== ENCOUNTER 2022-01-25 12:30 | Outpatient (CLI) | payer MEDICARE, BC ==
[~2022-01-25 12:30] MED LIST changes: -LIDOCAINE SOLN 4% 50 ML BOTTLE ONE
[2022-01-25] MEDS ORDERED: LIDOCAINE SOLN 4% 50 ML BOTTLE ONE (12:45)
== END 2022-01-25 23:59 | disposition home health service (06) ==
LOC: WOU 12:30
PROVIDERS: ATTEND Surgery
DX: S81.811A Laceration without foreign body, right lower leg, initial encounter (principal); X58.XXXA Exposure to other specified factors, initial encounter; Y92.89 Other specified places as the place of occurrence of the external cause; I10 Essential (primary) hypertension; E78.5 Hyperlipidemia, unspecified; F41.1 Generalized anxiety disorder; Z86.73 Personal history of transient ischemic attack (TIA), and cerebral infarction without residual deficits; Z85.3 Personal history of malignant neoplasm of breast
CPT/HCPCS: 11042

== ENCOUNTER 2022-02-05 12:58 | Outpatient (CLI) | payer MEDICARE, BC ==
[2022-02-05] MEDS ORDERED: LIDOCAINE SOLN 4% 50 ML BOTTLE ONE (13:07)
== END 2022-02-05 23:59 | disposition home health service (06) ==
LOC: WOU 12:58
PROVIDERS: ATTEND Surgery
DX: S81.811A Laceration without foreign body, right lower leg, initial encounter (principal); X58.XXXA Exposure to other specified factors, initial encounter; Y92.89 Other specified places as the place of occurrence of the external cause; I10 Essential (primary) hypertension; E78.5 Hyperlipidemia, unspecified; F41.1 Generalized anxiety disorder; Z86.73 Personal history of transient ischemic attack (TIA), and cerebral infarction without residual deficits; Z85.3 Personal history of malignant neoplasm of breast
CPT/HCPCS: 11042

== ENCOUNTER 2022-02-15 12:57 | Outpatient (CLI) | payer MEDICARE, BC | END 2022-02-15 23:59 | disposition home health service (06) | LOC: WOU 12:57 | PROVIDERS: ATTEND Surgery | DX: S81.811A Laceration without foreign body, right lower leg, initial encounter (principal); X58.XXXA Exposure to other specified factors, initial encounter; Y92.89 Other specified places as the place of occurrence of the external cause; I10 Essential (primary) hypertension; E78.5 Hyperlipidemia, unspecified; F41.1 Generalized anxiety disorder; Z86.73 Personal history of transient ischemic attack (TIA), and cerebral infarction without residual deficits; Z85.3 Personal history of malignant neoplasm of breast | CPT/HCPCS: 11042 ==

== ENCOUNTER 2022-03-01 12:30 | Outpatient (CLI) | payer MEDICARE, BC ==
[2022-03-01] MEDS ORDERED: LIDOCAINE SOLN 4% 50 ML BOTTLE ONE (12:34)
== END 2022-03-01 23:59 | disposition home health service (06) ==
LOC: WOU 12:30
PROVIDERS: ATTEND Surgery
DX: S81.811A Laceration without foreign body, right lower leg, initial encounter (principal); X58.XXXA Exposure to other specified factors, initial encounter; Y92.89 Other specified places as the place of occurrence of the external cause; E78.5 Hyperlipidemia, unspecified; F41.1 Generalized anxiety disorder; I10 Essential (primary) hypertension; Z85.3 Personal history of malignant neoplasm of breast
CPT/HCPCS: 17250

== ENCOUNTER 2022-03-08 13:05 | Outpatient (CLI) | payer MEDICARE, BC ==
[~2022-03-08 13:05] MED LIST changes: +SILVER NITRATE APPLICATOR 1 EA BOX ONE
== END 2022-03-08 23:59 | disposition home health service (06) ==
LOC: WOU 13:05
PROVIDERS: ATTEND Internal Medicine Interventional Cardiology
DX: S81.811A Laceration without foreign body, right lower leg, initial encounter (principal); X58.XXXA Exposure to other specified factors, initial encounter; Y92.89 Other specified places as the place of occurrence of the external cause; I10 Essential (primary) hypertension; E78.5 Hyperlipidemia, unspecified; F41.1 Generalized anxiety disorder; Z85.3 Personal history of malignant neoplasm of breast; Z86.73 Personal history of transient ischemic attack (TIA), and cerebral infarction without residual deficits
CPT/HCPCS: 11042

== ENCOUNTER 2022-03-29 12:39 | Outpatient (CLI) | payer MEDICARE, BC ==
[~2022-03-29 12:39] MED LIST changes: -SILVER NITRATE APPLICATOR 1 EA BOX ONE
== END 2022-03-29 23:59 | disposition home health service (06) ==
LOC: WOU 12:39
PROVIDERS: ATTEND Surgery
DX: S81.811D Laceration without foreign body, right lower leg, subsequent encounter (principal); X58.XXXD Exposure to other specified factors, subsequent encounter; E78.5 Hyperlipidemia, unspecified; I10 Essential (primary) hypertension; F41.1 Generalized anxiety disorder; Z86.73 Personal history of transient ischemic attack (TIA), and cerebral infarction without residual deficits; Z85.3 Personal history of malignant neoplasm of breast
CPT/HCPCS: G0463

== ENCOUNTER 2022-08-09 13:02 | Outpatient (CLI) | payer MEDICARE, BC | END 2022-08-09 23:59 | disposition home health service (06) | LOC: WOU 13:02 | PROVIDERS: ATTEND Surgery | DX: S81.811D Laceration without foreign body, right lower leg, subsequent encounter (principal); W19.XXXD Unspecified fall, subsequent encounter; I10 Essential (primary) hypertension; E78.5 Hyperlipidemia, unspecified; F41.1 Generalized anxiety disorder | CPT/HCPCS: G0463 ==

== ENCOUNTER 2023-10-22 11:09 | Emergency (ER) | payer MEDICARE, BC ==
[~2023-10-22] VITALS: Ht 157.5 cm; Wt 54.0 kg
[2023-10-22 11:20] VITALS: BP 169/92; TEMP 97.9
[2023-10-22] MEDS ORDERED: IBUP-1955 PO (12:43)
[2023-10-22 12:49] VITALS: O2SAT 97
== END 2023-10-22 12:48 | disposition home or self-care (01) ==
LOC: ER 11:44
DX: S93.401A Sprain of unspecified ligament of right ankle, initial encounter (principal); I10 Essential (primary) hypertension; E78.5 Hyperlipidemia, unspecified; Z91.040 Latex allergy status; Z88.8 Allergy status to other drugs, medicaments and biological substances; Z88.5 Allergy status to narcotic agent; X50.1XXA Overexertion from prolonged static or awkward postures, initial encounter; Y93.01 Activity, walking, marching and hiking; Y92.89 Other specified places as the place of occurrence of the external cause; Y99.8 Other external cause status
CPT/HCPCS: 73610-TC